=== PATIENT | female | born 1990 ===

== ENCOUNTER 2016-07-31 13:49 | Emergency (ER) | payer OTHER ==
[~2016-07-31] VITALS: Ht 172.7 cm; Wt 50.9 kg
[2016-07-31 13:53] VITALS: BP 113/77; PULSE 113; RESP 16; O2SAT 100
== END 2016-07-31 16:00 | disposition left against medical advice (07) ==
LOC: SED 13:49
DX: M79.644 Pain in right finger(s) (principal); Z53.21 Procedure and treatment not carried out due to patient leaving prior to being seen by health care provider